=== PATIENT | female | born 1940 | race Caucasian/White ===

== ENCOUNTER 2020-05-28 14:38 | Outpatient (RCR) | payer MEDICARE, SELFPAY ==
[2016-03-08 20:47] VITALS: BMI 23.1
== END 2020-05-28 23:59 ==
LOC: IMMUN 14:38
PROVIDERS: Visit Provider Family Medicine
DX: Z23 Encounter for immunization (principal)
CPT/HCPCS: 0011A; 0012A; 91301

== ENCOUNTER 2024-07-19 16:03 | Emergency (ER) | payer MEDICARE, SELFPAY ==
[2024-07-19] VITALS (22 sets, daily range): BP systolic 129–187; BP diastolic 58–105; PULSE 55–92; RESP 13–26; TEMP 36.7–37.2; O2SAT 80–100; BMI 20.7
--- NOTE | 2024-07-19 16:15 | EKG12_ITS ---
Test Reason : CP Blood Pressure : */* mmHG Vent. Rate : 71 BPM Atrial Rate : 71 BPM P-R Int : 174 ms QRS Dur : 82 ms QT Int : 396 ms P-R-T Axes : 48 -17 23 degrees QTcB Int : 430 ms Normal sinus rhythm Normal ECG Confirmed by LUKASZ CARR, ADEN ([id number]), writer editor TRICE MATA ([id number]) on 07/22/2024 10:59:21 AM Referred By: NEGRO/JEANETH Confirmed By: ADEN LAL MD
--- NOTE | 2024-07-19 16:35 | RAD_ITS ---
PROCEDURE: CHEST 1 VIEW (PORTABLE) 07/19/2024 REASON FOR EXAM: CHEST PAIN TECHNIQUE: Frontal view of the chest. COMPARISON: None. FINDINGS: Sternotomy wires are present. The heart size is normal. Patchy opacities in the lung bases, compatible with atelectasis. No pneumothorax. No pleural effusion. Degenerative changes are identified within the thoracic spine. RAD/Chest 1 View (Portable) IMPRESSION: No Acute Findings. Reading Location: [facility]
[2024-07-19 16:42] LABS: Absolute Lymphocyte Count 1.52 X10^3/uL (0.83-4.51); Absolute Neutrophil Count 4.3 X10^3/uL (2.0-7.7); Basophil# 0.02 X10^3/uL; Basophil% 0.3 % (0-1); Eosinophil# 0.12 X10^3/uL; Eosinophils% 1.9 % (0-5); Hematocrit 33.8 % (37-47); Hemoglobin 11.6 g/dL (12.0-15.0); Lymphocyte # 1.52 X10^3/ul (0.83-4.51); Lymphocyte % 23.9 % (19-41); Mean Corp Hgb Conc 34.3 g/dL (32-36); Mean Corpuscular Hgb 29.7 pg (27.0-32.0); Mean Corpuscular Volume 86.4 fL (81-99); Mean Platelet Vol. 9.7 fl (6.2-12.0); Monocyte# 0.44 X10^3/uL; Monocyte% 6.9 % (0-10); NRBC Flagged by Analyzer 0 % (0-5); Neutrophil # 4.25 X10^3/uL (2.7-7.7); Neutrophil % 66.7 % (47-70); Platelet Count 231 K/mm3 (150-450); RBC Distribution Width CV 12.7 % (11.6-14.6); RBC Distribution Width SD 40.4 fl (35.1-43.9); Red Blood Count 3.91 M/mm3 (4.2-5.4); White Blood Count 6.4 K/mm3 (4.4-11.0)
--- NOTE | 2024-07-19 17:05 | EDS_ITS ---
HPI History of Present Illness Chief Complaint: Chest Pain Narrative Narrative: Patient is a 84-year-old female with past medical history of colon cancer with colostomy in place, hypertension, CAD status post CABG several years ago who presents to the emergency department chief complaint chest pain. Patient states that her chest pain started around 8 AM this morning. States that she was getting her breakfast when she noted she developed chest pain. Patient states that this was on and off throughout the day nothing really made this better or worse. Patient states that she has had some shortness of breath with exertion recently which is more than normal for her. Patient states that she does not follow with a stock sheets cleaner inspector on a regular basis. Patient denies recent travel history denies any history of blood clots. [facility] Medical History Colostomy in place Colon cancer Non-smoker Hypertension Home Medications ?Medication ?Instructions ?Recorded ?Last Taken ?Type atorvastatin 80 mg tablet 80 mg PO DAILY 03/08/16 Unkn own History magnesium hydroxide 400 mg/5 mL 30 ml PO PRN PRN Const ipation 03/08/16 Unknown History oral suspension (Milk of Magnesia) raloxifene 60 mg tablet 60 mg PO DAILY 03/08/16 Unkn own History Allergy/AdvReac Type Severity Reaction Status Date / Time Sulfa (Sulfonamide Allergy Anaphylaxis Verified 03/08/16 20:53 Antibiotics) Surgical History History of open heart surgery Social History Smoking Status: Never smoker ROS ROS ED ROS Narrative Constitutional: Denies fevers, chills, headaches, lightness, dizziness Eyes: Denies change in vision double vision blurry vision Cardiovascular: Complains of chest pain as noted above denies palpitations Respiratory: Complains of shortness of breath as noted above denies wheezing denies cough Abdomen: Denies abdominal pain nausea vomit diarrhea : Denies any urinary symptoms Neurological: Denies numbness, weakness, tingling Musculoskeletal: Denies back pain Skin: Denies rashes or lesions EXAM Physical Exam Narrative Exam Narrative: General: Patient is lying in bed rest comfortably did not appear to be in acute distress Head: Atraumatic, normocephalic Eyes: PERRL bilaterally, EOMI bilateral, no conjunctival injection noted Neck: Soft, supple, trachea midline Cardiovascular: Regular rate and rhythm no murmurs gallops rubs noted Respiratory: Clear to auscultation bilaterally no rales rhonchi or wheeze noted Abdomen: Soft, nondistended, colostomy pink, good output Extremities: +4/5 strength noted in the bilateral upper and lower extremities, radial pulses +2/4 in the bilateral extremities, no pedal edema no exam Neurological: Patient following commands knew that she was at [facility] year is 2024 Skin: Warm, dry, intact no rashes or lesions noted Const Vital Signs: 07/19/24 16:04 07/19/24 16:45 07/19/24 16:46 Temperature 98.9 F Temperature Source Oral Pulse Rate 78 Respiratory Rate 16 Respiratory Effort Normal Non-Labored Blood Pressure 182/101 H Blood Pressure Mean 128 Pulse Ox 98 Oxygen Delivery Method Room Air Room Air 07/19/24 17:33 07/19/24 17:46 07/19/24 17:47 Temperature Temperature Source Pulse Rate 60 70 Respiratory Rate 17 15 Respiratory Effort Blood Pressure Blood Pressure Mean Pulse Ox 100 96 99 Oxygen Delivery Method 07/19/24 18:00 07/19/24 18:15 07/19/24 18:30 Temperature Temperature Source Pulse Rate 61 62 62 Respiratory Rate 14 20 H 17 Respiratory Effort Blood Pressure 187/67 H 159/72 H 181/91 H Blood Pressure Mean 98 96 119 Pulse Ox 99 99 98 Oxygen Delivery Method 07/19/24 18:35 07/19/24 18:38 07/19/24 18:40 Temperature Temperature Source Pulse Rate 61 63 92 Respiratory Rate 17 26 H Respiratory Effort Blood Pressure 181/91 H 179/70 H 147/105 H Blood Pressure Mean 97 112 Pulse Ox 98 97 Oxygen Delivery Method 07/19/24 18:45 07/19/24 19:00 07/19/24 19:15 Temperature Temperature Source Pulse Rate 60 60 Respiratory Rate 15 19 H Respiratory Effort Blood Pressure 159/82 H 163/83 H 153/89 H Blood Pressure Mean 104 106 102 Pulse Ox 99 99 Oxygen Delivery Method 07/19/24 19:32 07/19/24 19:45 07/19/24 20:00 Temperature Temperature Source Pulse Rate 89 60 59 L Respiratory Rate 13 22 H Respiratory Effort Blood Pressure 150/68 H 138/77 H Blood Pressure Mean 92 95 Pulse Ox 80 97 98 Oxygen Delivery Method 07/19/24 20:15 07/19/24 20:30 07/19/24 20:45 Temperature Temperature Source Pulse Rate 56 L 57 L Respiratory Rate 16 20 H Respiratory Effort Blood Pressure 142/64 H 129/58 H 138/88 H Blood Pressure Mean 85 70 103 Pulse Ox 98 97 Oxygen Delivery Method 07/19/24 21:00 Temperature Temperature Source Pulse Rate 55 L Respiratory Rate 24 H Respiratory Effort Blood Pressure 161/58 H Blood Pressure Mean 88 Pulse Ox 98 Oxygen Delivery Method MDM MDM MDM Narrative Medical decision making narrative: Patient is a 84-year-old female who presented to the emergency department chief complaint chest pain since 8 AM this morning. On the differential diagnose includes but not limited to ACS, stable angina, pneumothorax, CHF. Once workup is obtained reviewed she will be reevaluated. Patient's CBC was reviewed and showed no evidence leukocytosis white blood count 6.4, hemoglobin 11.6, plate count to be normal at 231. Patient sodium normal 136, potassium normal 3.5, creatinine was noted to be 1.39. Patient's troponin was noted be 19 with a delta troponin noted be 19. Patient proBNP normal at 585. Patient's chest x-ray was reviewed by myself by radiology showed no acute cardiopulmonary processes. Patient's EKG reviewed showed sinus rhythm with a rate of 71 bpm this was compared to an EKG from March 08, 2016 and was largely unchanged. Patient ambulated well here in the emergency department no hypoxia no tachycardia. Patient ultimately did receive nitroglycerin as the family ember came out and notified us that she was having worsening chest pain. Patient n maria t that she still has been having intermittent chest pain off and on. Called and discussed case with on-call stock sheets cleaner inspector Dr. Avila who states that the patient can go home and follow-up with her primary care physician to have an outpatient stress test. At this point in time we have low suspicion that this is cardiac in nature as the pain has been off and on all day since 8 AM nothing makes this better or worse. I did discuss this plan with the patient's family numbers at bedside the patient herself. They did note that yesterday she did a lot of cleaning and stuff that she normally does not do. They are agreeable with this plan and they are advised to return for worsening symptoms and concerns. All question concerns answered she was discharged home in stable condition. Lab Data Labs: Laboratory Results - last 24 hr 07/19/24 07/19/24 07/19/24 16:23 18:29 18:29 WBC 6.4 RBC 3.91 L Hgb 11.6 L Hct 33.8 L MCV 86.4 MCH 29.7 MCHC 34.3 RDW Std Deviation 40.4 RDW Coeff of Gilberto 12.7 Plt Count 231 MPV 9.7 Immature Gran % (Auto) 0.300 Neut % (Auto) 66.7 Lymph % (Auto) 23.9 [place] % (Auto) 6.9 Eos % (Auto) 1.9 Baso % (Auto) 0.3 Absolute Neuts (auto) 4.3 Absolute Lymphs (auto) 1.52 Nucleated RBC % 0 Sodium 136 Potassium 3.5 Chloride 98 Carbon Dioxide 21.8 Anion Gap 16 H BUN 24 H Creatinine 1.39 H Estim Creat Clear Calc 26.49 L Est GFR (MDRD) Non-Af 37 L BUN/Creatinine Ratio 17.1 Glucose 170 H Calcium 9.8 Total Bilirubin 0.41 Direct Bilirubin 0.16 AST 22 ALT 13 Alkaline Phosphatase 80 Troponin T High Sens 19 H Troponin T Hi Sens 2 Hr Cancelled 19 H NT pro BNP II 585 Total Protein 6.5 Albumin 4.1 Globulin 2.4 Radiography Diagnostic Testing: Clinical Impression(s) from Imaging Studies Chest X-Ray 07/19/24 16:35 IMPRESSION: No Acute Findings. Reading Location: [facility] Discharge Plan Triage Chief Complaint: Chest Pain ED Provider: Ulysses Rubalcava Dx/Rx/DC Orders Clinical Impression: Chest pain Prescriptions: No Action atorvastatin 80 MG tablet 80 mg PO DAILY magnesium hydroxide [Milk of Magnesia] 400 MG/5 ML suspension 30 ml PO PRN PRN (Reason: Constipation) raloxifene 60 MG tablet 60 mg PO DAILY Primary Care Provider: Alexis West Referrals: Alexis West MD [Primary Care Provider] - Activity Restrictions/Additional Instructions: Follow-up with your primary care physician have a stress test obtained in the outpatient setting. Return with worsening symptoms or other concerns. Rotate Tylenol and ibuprofen [id number] for pain control when you do this you can take something every 3 hours. Max dose of Tylenol is 4000 mg max dose of ibuprofen is 3200 mg. Print Language: Polish Disposition Disposition: Home, Self Care
[2024-07-19 18:12] LABS: AST(SGOT) 22 U/L (<=31); Alanine Aminotransfer ALT/SGPT 13 U/L (<=34); Albumin, Serum 4.1 g/dL (3.4-4.8); Alkaline Phosphatase 80 U/L (35-104); Anion Gap 16 (5-15); BUN 24 mg/dL (4-19); BUN/Creat Ratio 17.1 RATIO (10-20); Bilirubin, Direct 0.16 mg/dL (0.00-0.30); Calcium,Total 9.8 mg/dL (7.6-11.0); Carbon Dioxide 21.8 mmol/L (21.0-32.0); Chloride 98 mmol/L (98-108); Creatinine, Serum 1.39 mg/dL (0.70-1.20); EST Glomerular Filtration Rate 37 (>60); Estimated Creatinine Clearance 26.49 ml/min (50-250); Globulin 2.4 g/dL (2.2-4.2); Glucose 170 mg/dL (70-99); Potassium 3.5 mmol/L (3.3-5.1); Protein, Total 6.5 g/dL (5.9-8.4); Sodium Level 136 mmol/L (133-145); Total Bilirubin 0.41 mg/dL (0.00-1.30); Troponin T High Sensitivity 19 ng/L (<=14)
[2024-07-19] MEDS: Nitroglycerin SL (ED/IMG/CATH) 0.4 MG TABLET SL (18:35)
[2024-07-19] MEDS: Aspirin 325 MG Tablet PO (18:35)
[2024-07-19 18:53] LABS: Pro- Brain NATRIURETIC PEPTIDE 585 pg/mL (<=1800)
[2024-07-19 19:55] LABS: Troponin T High Sens 2 HR 19 ng/L (<=14)
--- NOTE | 2024-07-19 21:50 | ED.RN ---
did not want 4 hour troponin at this time
== END 2024-07-19 22:01 | disposition home or self-care (01) ==
PROVIDERS: Emergency Provider Emergency Medicine; PCP Family Medicine; Visit Provider Emergency Medicine
DX: R07.9 Chest pain, unspecified (principal); Z93.3 Colostomy status; I10 Essential (primary) hypertension; Z85.038 Personal history of other malignant neoplasm of large intestine; I25.10 Atherosclerotic heart disease of native coronary artery without angina pectoris; Z95.1 Presence of aortocoronary bypass graft; R06.02 Shortness of breath
CPT/HCPCS: 71045; 80048; 80076; 83880; 84484; 85025; 93005; 99285; A4216

== ENCOUNTER 2024-07-24 18:17 | Observation (INO) | payer MEDICARE, SELFPAY ==
[2024-07-24] VITALS (12 sets, daily range): BP systolic 107–197; BP diastolic 49–110; PULSE 64–81; RESP 15–24; TEMP 36.6–36.8; O2SAT 96–99; BMI 22.0; BMI 21.7
--- NOTE | 2024-07-24 18:31 | EKG12_ITS ---
Test Reason : CP Blood Pressure : */* mmHG Vent. Rate : 74 BPM Atrial Rate : 74 BPM P-R Int : 182 ms QRS Dur : 90 ms QT Int : 382 ms P-R-T Axes : 52 -29 14 degrees QTcB Int : 424 ms Sinus rhythm with sinus arrhythmia with Premature ventricular complexes or Fusion complexes Nonspecific ST abnormality Abnormal ECG When compared with ECG of 19-Jul-2024 16:11, Fusion complexes are now Present Premature ventricular complexes are now Present Confirmed by ASAEL CARR, FREDERCIK ([id number]), book or script editor CECELIA YUN ([id number]) on 07/29/2024 7:34:14 AM Referred By: Alexander Gould Confirmed By: FREDERICK VYAS MD
--- NOTE | 2024-07-24 18:32 | EDS_ITS ---
HPI History of Present Illness Chief Complaint: Chest Pain Informant: patient and family Narrative Narrative: Patient presents here with her son for recurrent chest pain 5 PM will get ready for supper with midsternal soreness burning with short of breath. No nausea no radicular symptoms no diaphoresis. She was seen here 4 days ago similar symptoms however this is more intense. History of four-vessel CABG over 30 years ago. She currently does not follow cardiology. She is not on aspirin. Hypertension hyperlipidemia history. Borderline diabetes. She states no recent stress test. She did follow-up with her PCP yesterday, states pharmacological stress test scheduled for September 16. She has a chronic dry cough. Denies vomiting or diarrhea. No recent travel or surgeries. No history of PE or DVT. Colostomy 2 years ago for history of colon cancer. No chemo or radiation therapy recently. Prior Similar Symptoms: Yes CVD Risk Factors: Positive for Hypertension, Diabetes and Hypercholesterolemia PE Risk Factors: Negative for Recent Travel/Surgery, Recent Immobilization or [facility] or [facility] (Updated 07/24/24 @ 20:[address] Jessica Sidhu MD) Psoriasis Prediabetes CKD (chronic kidney disease), stage III Chronic anemia CAD (coronary artery disease) HLD (hyperlipidemia) Colostomy in place Colon cancer Hypertension Home Medications ?Medication ?Instructions ?Recorded ?Last Taken ?Type atorvastatin 80 mg tablet 80 mg PO DAILY 03/08/16 Unkn own History raloxifene 60 mg tablet 60 mg PO DAILY 03/08/16 Unkn own History chlorthalidone 25 mg tablet 25 mg PO DAILY 07/24/24 Un known History cholecalciferol (vitamin D3) 1 tab PO DAILY 07/24/24 0 07/24/24 History clobetasol 0.05 % scalp solution 1 applic topical EVAN Y 07/24/24 Unknown History Allergy/AdvReac Type Severity Reaction Status Date / Time Sulfa (Sulfonamide Allergy Anaphylaxis Verified 07/24/24 18:17 Antibiotics) Family History (Updated 07/24/24 @ 20:[address] Jessica Sidhu MD) Mother M?ni?re's disease Father No problems noted. Surgical History (Updated 07/24/24 @ 19:[address] Jessica Sidhu MD) S/P CABG x 4 S/P partial colectomy S/P colostomy History of open heart surgery Social History (Updated 07/24/24 @ 20:[address] Jessica Sidhu MD) household members: none Smoking Status: Never smoker alcohol intake: never substance use type: does not use ROS ROS ED Constitutional Constitutional ED: Denies chills, fever(s) or sweats ENT ENT ED: Denies sore throat Cardiovascular Cardiovascular: Reports chest pain; Denies leg edema, palpitations or racing heartbeat Respiratory/Chest Respiratory/Chest: Reports dyspnea; Denies cough or dyspnea on exertion Gastrointestinal Gastrointestinal: Denies abdominal pain, diarrhea, nausea or vomiting Genitourinary Genitourinary ED: Denies dysuria, hematuria or urinary frequency Musculoskeletal Musculoskeletal: Denies back pain, extremity pain or neck pain Integumentary Denies rash or wounds Neurologic Neurologic: Denies headache(s), paresthesias or weakness EXAM Physical Exam Const Vital Signs: 07/24/24 18:18 07/24/24 18:28 07/24/24 18:31 Temperature 97.8 F Temperature Source Temporal Pulse Rate 79 69 Respiratory Rate 24 H 16 Respiratory Effort Normal Blood Pressure 177/110 H 107/81 H Blood Pressure Mean 132 89 Pulse Ox 96 98 Oxygen Delivery Method Room Air Room Air 07/24/24 18:49 07/24/24 18:51 07/24/24 19:00 Temperature Temperature Source Pulse Rate 67 65 Respiratory Rate 15 17 Respiratory Effort Blood Pressure Blood Pressure Mean Pulse Ox 99 98 Oxygen Delivery Method Room Air 07/24/24 19:01 Temperature Temperature Source Pulse Rate 80 Respiratory Rate 17 Respiratory Effort Blood Pressure 155/63 H Blood Pressure Mean 90 Pulse Ox 98 Oxygen Delivery Method Positive well nourished and well developed General Appearance ED: well developed and NAD HEENT Reports moist mucous membranes normocephalic and atraumatic Eyes General Eye ED: Yes normal appearance of both eyes Neck full ROM Chest Wall Chest: Negative for tenderness Resp normal respiratory effort and normal air movement Effort and Inspection: symmetric chest movement; Negative for respiratory distre ss Cardio regular rate, regular rhythm and no murmurs Peripheral Pulses: pulses 2+ throughout GI normal to inspection, nondistended, normoactive bowel sounds and non-tender GI Narrative: Left lower abdomen colostomy Palpation: Negative for guarding or rebound tenderness present Extremity normal to inspection General Extremety ED: Negative for edema or tenderness General Extremity: Negative for edema Neuro oriented x3 and no sensory deficits noted Sensorium / Orientation: awake and alert Skin no rashes or lesions noted and no wounds Heart Score History: Slightly/Non-Suspicious ECG: Normal Age: >/= 65 years Risk Factors: >/= 3 Risk Factors or History of CAD Troponin: >1 - <3 Normal Limit Score: 5 MDM MDM MDM Narrative Medical decision making narrative: Interventions / MDM: Differential diagnosis: Chest pain, history of coronary disease Diagnosis considered but do not suspect: Pulmonary embolism however D-dimer negative My EKG interpretation: Sinus rate of 74, no ST changes, isolated T wave inversion in 3 flattening in aVF. Similar to 4 days ago. Imaging independently reviewed and interpreted by myself: 1 view chest x-ray: Linear retrocardiac opacity atelectasis versus scarring. External documents reviewed: ED visit from 4 days ago troponin 19 and 19. Discussed with cardiology for outpatient testing. Test considered but not ordered:N/A ED course: Patient recurrent chest pain history of coronary disease cardiac risk factors. EKG unchanged. Aspirin therapy given. Cardiac workup. History of colon cancer recurrent symptoms, will add D-dimer for further evaluation. 1933: Initial troponin 15, symptoms minimal at this time on reevaluation. D- dimer was negative. Chest x-ray linear atelectasis versus scarring with opacity. Dry cough. No clinical concern for pneumonia. Creatinine 1.53 up from 1.39. I will give her a 500 cc bolus of normal saline. Sodium 131. History of coronary disease recurrent chest pains, delayed stress test outpatient at this time. I will discuss with hospitalist service for admission. I discussed with Dr. Sidhu for admission. Re-evaluation: stable Disposition discussed with patient/family/significant other: Patient and family Case discussed with consulting clinician: Hospitalist This note was generated with Milo dictation software. It may contain incorrect words, spelling, and punctuation that were not noted in checking the note before signing. Lab Data Attestation: I reviewed the patient's lab results. Labs: Laboratory Results - last 24 hr 07/24/24 18:33 WBC 6.5 RBC 3.93 L Hgb 11.7 L Hct 34.0 L MCV 86.5 MCH 29.8 MCHC 34.4 RDW Std Deviation 40.4 RDW Coeff of Gilberto 12.7 Plt Count 244 MPV 9.6 Immature Gran % (Auto) 0.300 Neut % (Auto) 62.1 Lymph % (Auto) 28.3 [place] % (Auto) 6.7 Eos % (Auto) 2.3 Baso % (Auto) 0.3 Absolute Neuts (auto) 4.1 Absolute Lymphs (auto) 1.85 Nucleated RBC % 0 D-Dimer Quant (PE/DVT) 0.39 Sodium 131 L Potassium 3.7 Chloride 95 L Carbon Dioxide 22.8 Anion Gap 14 BUN 23 H Creatinine 1.53 H Estim Creat Clear Calc 24.19 L Est GFR (MDRD) Non-Af 33 L BUN/Creatinine Ratio 14.8 Glucose 271 H Calcium 9.4 Magnesium 1.5 Troponin T High Sens 15 H D Radiography Diagnostic Testing: Clinical Impression(s) from Imaging Studies Chest X-Ray 07/24/24 18:36 IMPRESSION: Stable linear retrocardiac opacities which may relate to atelectasis/scarring. Please correlate. [facility] Dx/Rx/DC Orders Clinical Impression: Chest pain, Hx of CABG, Renal insufficiency, Hyponatremia Disposition Disposition: Acute Care Hospital [facility] Discharge Date/Time: 07/24/24 20:30
--- NOTE | 2024-07-24 18:36 | RAD_ITS ---
PROCEDURE: Chest radiograph REASON FOR EXAM: Chest pain TECHNIQUE: Frontal view of the chest. COMPARISON: 07/19/2024 FINDINGS: Cardiomediastinal silhouette is within normal limits. Unchanged linear retrocardiac opacities favoring scarring/atelectasis. Lungs are otherwise clear. No sizable pneumothorax. RAD/Chest 1 View (Portable) IMPRESSION: Stable linear retrocardiac opacities which may relate to atelectasis/scarring. Please correlate. Reading Location: [facility]
[2024-07-24] MEDS: Aspirin 81 MG TAB.CHEW 324 MG PO (18:43)
[2024-07-24 18:57] LABS: Absolute Lymphocyte Count 1.85 X10^3/uL (0.83-4.51); Absolute Neutrophil Count 4.1 X10^3/uL (2.0-7.7); Basophil# 0.02 X10^3/uL; Basophil% 0.3 % (0-1); D-Dimer Quantitative (DVT/PE) 0.39 FEU/ug/m (0.27-0.49); Eosinophil# 0.15 X10^3/uL; Eosinophils% 2.3 % (0-5); Hemoglobin 11.7 g/dL (12.0-15.0); Lymphocyte # 1.85 X10^3/ul (0.83-4.51); Lymphocyte % 28.3 % (19-41); Mean Corp Hgb Conc 34.4 g/dL (32-36); Mean Corpuscular Hgb 29.8 pg (27.0-32.0); Mean Corpuscular Volume 86.5 fL (81-99); Mean Platelet Vol. 9.6 fl (6.2-12.0); Monocyte# 0.44 X10^3/uL; Monocyte% 6.7 % (0-10); NRBC Flagged by Analyzer 0 % (0-5); Neutrophil # 4.06 X10^3/uL (2.7-7.7); Neutrophil % 62.1 % (47-70); Platelet Count 244 K/mm3 (150-450); RBC Distribution Width CV 12.7 % (11.6-14.6); RBC Distribution Width SD 40.4 fl (35.1-43.9); Red Blood Count 3.93 M/mm3 (4.2-5.4); White Blood Count 6.5 K/mm3 (4.4-11.0)
[2024-07-24 19:26] LABS: Anion Gap 14 (5-15); BUN 23 mg/dL (4-19); BUN/Creat Ratio 14.8 RATIO (10-20); Calcium,Total 9.4 mg/dL (7.6-11.0); Carbon Dioxide 22.8 mmol/L (21.0-32.0); Chloride 95 mmol/L (98-108); Creatinine, Serum 1.53 mg/dL (0.70-1.20); EST Glomerular Filtration Rate 33 (>60); Estimated Creatinine Clearance 24.19 ml/min (50-250); Glucose 271 mg/dL (70-99); Potassium 3.7 mmol/L (3.3-5.1); Sodium Level 131 mmol/L (133-145); Troponin T High Sensitivity 15 ng/L (<=14)
[2024-07-24] MEDS: 0.9% Normal Saline (500mL Bag) 500 ML 999 ML IV (19:48)
--- NOTE | 2024-07-24 19:49 | PCM.HP.STD ---
HPI - General General Date of Admission: 07/24/24 Date of Service: 07/24/24 Chief Complaint: Chest pain, dyspnea. HPI Narrative The patient is an 84 y/o F w/ PMHx: Prediabetes, HTN, HLD, Hx Colon CA s/p resection with colostomy in place, CAD s/p CABG, CKD stage III unclear subtype per GFR trending, Chronic normocytic anemia who presents to the [facility] ED on 07/24/2024 with history of episodes of recurrent chest discomfort noted to be specifically today at 5 PM while getting ready for supper noted to be midsternal described as an aching/soreness/burning with associated dyspnea with no nausea, emesis or diaphoresis seen approximately 4 days prior in the ED for similar symptoms but she notes this is more intense than prior prompting family to bring her in for evaluation. Patient states that she has not been taking the aspirin therapy. She notes following with her PCP the day prior and did have a pharmacological stress test ordered for 09/16/2024. She does report having a chronic dry cough that is unchanged. Patient describes chest discomfort as 5 out of 10 in severity. In the ED upon evaluation she notes has been chest pain-free. She does think that potentially the chest pain is primarily when she is active. Workup in the ED included T97.8, heart rate 79, BP 177/110, respiratory rate 24, 96% on room air with most recent repeat vitals heart rate 80, BP 150/63, respiratory rate 17, 98% room air, CBC with WBC 6.5, 11.7, MCV 86.5 without marked shift, D-dimer 0.39, BMP with sodium 131, chloride 95, BUN/Kingsley 23/1.53, GFR 33, glucose 271, troponin initial 15, chest x-ray with stable linear retrocardiac opacities likely atelectasis/scarring noted on prior imaging studies, EKG in ED sinus rhythm with isolated T wave inversion in 3, flattening in AVF similar to previous. [facility] Medical History (Updated 07/24/24 @ 20:[address] Jessica Sidhu MD) Psoriasis Prediabetes CKD (chronic kidney disease), stage III Chronic anemia CAD (coronary artery disease) HLD (hyperlipidemia) Colostomy in place Colon cancer Hypertension Home Medications ?Medication ?Instructions ?Recorded ?Last Taken ?Type atorvastatin 80 mg tablet 80 mg PO DAILY 03/08/16 Unknown History raloxifene 60 mg tablet 60 mg PO DAILY 03/08/16 Unknown History chlorthalidone 25 mg tablet 25 mg PO DAILY 07/24/24 Unknown History cholecalciferol (vitamin D3) 1 tab PO DAILY 07/24/24 07/24/24 History clobetasol 0.05 % scalp solution 1 applic topical DAILY 07/24/24 Unknown History Allergy/AdvReac Type Severity Reaction Status Date / Time Sulfa (Sulfonamide Allergy Anaphylaxis Verified 07/24/24 18:17 Antibiotics) Family History (Updated 07/24/24 @ 20:[address] Jessica Sidhu MD) Mother M?ni?re's disease Father No problems noted. Surgical History (Updated 07/24/24 @ 19:[address] Jessica Sidhu MD) S/P CABG x 4 S/P partial colectomy S/P colostomy History of open heart surgery Social History (Updated 07/24/24 @ 20:[address] Jessica Sidhu MD) household members: none Smoking Status: Never smoker alcohol intake: never substance use type: does not use ROS ROS Narrative Admission Review of Systems: CONSTITUTIONAL: No weight loss, fever, chills, + weakness or fatigue. HEENT: Eyes: No visual loss, blurred vision, double vision or yellow sclerae. Ears, Nose, Throat: No hearing loss, sneezing, congestion, runny nose or sore throat. SKIN: No rash or itching, lesions, wounds, + psoriatic lesions. CARDIOVASCULAR: + Chest pain/tightness/burning sensation. No palpitations, edema, orthopnea, syncopal events. RESPIRATORY: + Dyspnea, chronic dry cough. No wheezing, hemoptysis. GASTROINTESTINAL: + Colostomy in place. No anorexia, nausea, vomiting or diarrhea, abdominal pain, melena, BRBPR. GENITOURINARY: No dysuria, frequency, urgency or retention. NEUROLOGICAL: No headache, dizziness, syncope, paralysis, ataxia, numbness or tingling in the extremities, focal weakness, change in bowel or bladder control, seizure. MUSCULOSKELETAL: + muscle, back pain, joint pain or stiffness. HEMATOLOGIC: + Anemia, easy bleeding/bruising LYMPHATICS: No enlarged nodes. No history of splenectomy. PSYCHIATRIC: No history of anxiety and/or depression. ENDOCRINOLOGIC: No reports of sweating, cold or heat intolerance. No polyuria or polydipsia. ALLERGIES: No history of asthma, hives, eczema or rhinitis. Vital Signs Vital Signs Vital Signs: 07/24/24 18:18 07/24/24 18:28 07/24/24 18:31 Temperature 97.8 F Temperature Source Temporal Pulse Rate 79 69 Respiratory Rate 24 H 16 Respiratory Effort Normal Blood Pressure 177/110 H 107/81 H Blood Pressure Mean 132 89 Pulse Ox 96 98 Oxygen Delivery Method Room Air Room Air 07/24/24 18:49 07/24/24 18:51 07/24/24 19:00 Temperature Temperature Source Pulse Rate 67 65 Respiratory Rate 15 17 Respiratory Effort Blood Pressure Blood Pressure Mean Pulse Ox 99 98 Oxygen Delivery Method Room Air 07/24/24 19:01 Temperature Temperature Source Pulse Rate 80 Respiratory Rate 17 Respiratory Effort Blood Pressure 155/63 H Blood Pressure Mean 90 Pulse Ox 98 Oxygen Delivery Method Weight Weight: 132 lb 7.965 oz Body Mass Index (BMI) 22.0 Physical Exam Narrative Physical Examination: General: Awake, alert, oriented x 3 and cooperative, seated upright in the ED bed, denies any current chest discomfort. Skin: Normal color, normal turgor, no icterus, no cyanosis except for occasional stage ecchymoses, abrasions, psoriatic lesions. HEENT: AT/NC, EOMI, PERRLA, mildly dry MM, no carotid bruits or JVD noted. Lungs: Mildly diminished, greater bases, poor effort, no rales, ronchi or wheezing. Heart: Regular rate and rhythm; no gallop, rub audible, + SM. Abdomen: Soft, left lower quadrant colostomy with appropriate output, NTTP, ND, hyperactive BS, no appreciated HSM. Extremities: No cyanosis, clubbing, or edema. Neurological: Patient awake, alert, oriented as noted, cognitive function intact; pupils equally reactive to light and accommodation, cranial nerves gross normal, moving all 4 extremities, no focal deficits, strength mildly to moderately global decreased, extremely active performing her all her own ADLs per discussion. Psychiatric: Affect appears normal, no acute evidence of depressive or anxiety feelings. Results Lab / Micro Data 07/24/24 18:33 07/24/24 18:33 Labs: Laboratory Results - last 24 hr 07/24/24 18:33: WBC 6.5, RBC 3.93 L, Hgb 11.7 L, Hct 34.0 L, MCV 86.5, MCH 29.8, MCHC 34.4, RDW Std Deviation 40.4, RDW Coeff of Gilberto 12.7, Plt Count 244, MPV 9.6, Immature Gran % (Auto) 0.300, Neut % (Auto) 62.1, Lymph % (Auto) 28.3, Fannin % (Auto) 6.7, Eos % (Auto) 2.3, Baso % (Auto) 0.3, Absolute Neuts (auto) 4.1, Absolute Lymphs (auto) 1.85, Nucleated RBC % 0, D-Dimer Quant (PE/DVT) 0.39, Sodium 131 L, Potassium 3.7, Chloride 95 L, Carbon Dioxide 22.8, Anion Gap 14, BUN 23 H, Creatinine 1.53 H, Estim Creat Clear Calc 24.19 L, Est GFR (MDRD) Non-Af 33 L, BUN/Creatinine Ratio 14.8, Glucose 271 H, Calcium 9.4, Troponin T High Sens 15 H D Imaging Radiology Impression Chest X-Ray 07/24/24 18:36 IMPRESSION: Stable linear retrocardiac opacities which may relate to atelectasis/scarring. Please correlate. Reading Location: [facility] Assessment & Plan Assessment/Plan (1) Chest pain: PLAN: Plan The patient is an 84 y/o F w/ PMHx: Prediabetes, HTN, HLD, Hx Colon CA s/p resection with colostomy in place, CAD s/p CABG, CKD stage III unclear subtype per GFR trending, Chronic normocytic anemia who presents to the [facility] ED on 07/24/2024 with history of episodes of recurrent chest discomfort noted to be specifically today at 5 PM while getting ready for supper noted to be midsternal described as an aching/soreness/burning with associated dyspnea with no nausea, emesis or diaphoresis seen approximately 4 days prior in the ED for similar symptoms but she notes this is more intense than prior prompting family to bring her in for evaluation. #1. Chest Pain: EKG in ED sinus rhythm with isolated T wave inversion in 3, flattening in AVF similar to previous, CXR w/ no acute cardiopulmonary findings, initial trop 15. Will admit to PCU, place on a monitored bed to assure no acute myocardial infarction with serial cardiac enzymes and EKGs. If repeat serial cardiac enzymes and EKGs remain unremarkable will pursue a.m. cardiac stress testing. Magnesium level requested. FLP in AM. Aspirin therapy. #2. Hyperglycemia with reported prediabetic history: Not on regimen, admission glucose 271, will obtain he will A1c, maintain on ADA diet with Accu-Cheks with insulin sliding scale to be cautious. #3. Acute mild hyponatremia, hypochloremia: Admission sodium 131, chloride 95, mildly decreased, will temporally hold chlorthalidone and judiciously hydrate, repeat CMP in AM. #4. Chronic normocytic anemia: Admission hemoglobin 1.7, MCV 86.5, baseline hemoglobin 11, stable, continue to trend. #5. CAD: Status post CABG x 4 remotely reported, will maintain on aspirin, statin, not on beta-samanta or ISAIAS inhibitor/ARB, attempting to clarify #6. Chronic Kidney Disease Stage III, unclear subtype per GFR trend: Admission BUN/Cr 23/1.53, GFR 33, baseline renal function 1.3 but not a significant amount of data points thus unclear exact level baseline, repeat BMP in AM. #7. History of colon cancer: s/p partial colectomy/resection approximately 2 years prior to current presentation, colostomy in place, consider admission, encourage continue follow-up outpatient as previously arranged #8. Hypertension: Temporally holding chlorthalidone, not on beta-samanta or ISAIAS inhibitor/ARB of note, PRN hydralazine. #9. Hyperlipidemia: Continue home statin regimen. AM FLP. #10. DVT prophylaxis: Lovenox. #11. CODE status: Patient healthcare power of patent prosecution attorney and living will are not in place but she notes that her daughter Jazmyn would be her medical decision-maker if necessary. Discussed CODE status at length including difference between FULL code, DNR-CCA and DNR-CC status. Following discussions about the differences in these status, requested Full Code status. Advanced Care Planning Face to Face Time: 16 minutes. Charges/Coding Visit Charges Inpatient E&M: 94627 Init Hosp L2 Procedures Hospitalists Procedures: 30475 Advncd Care Plan 30 Min
--- NOTE | 2024-07-24 19:53 | CASEMGMT ---
Care Management Face to Face with patient for initial transition planning/care coordination assessment in the ED.? This creative services writer introduced self and role at [facility]. Patient alert and oriented. Patient willing to participate in assessment and is able to answer all questions appropriately.? Care providers, pharmacy, and demographics verified. Admitting Diagnosis: Chest pain Other diagnosis history: colostomy, colon cancer, hypertension PCP: Brett Specialists: dermatology Preferred Pharmacy: [facility] Insurance: [employer] Prescription Benefit: yes Living Will/HPOA: ?no LNOK: son, daughter Living Arrangements: lives alone in a one story home. Patient independent with ADLs and IADLs Transportation: son and daughter drive DME: wheelchair, cane, grab bars in bathroom, shower chair HHC: none SNF/Rehab: none Community Resources: none Behavioral Health History: none Patient goals: Patient wishes to discharge home. Disposition Plan: admission to acute; RN CM/SW to follow for discharge planning needs that may arise. Margarita Diop, [employer]ER, [employer] GROWER
--- NOTE | 2024-07-24 19:55 | EKG12_ITS ---
Test Reason : AM EKG Blood Pressure : */* mmHG Vent. Rate : 70 BPM Atrial Rate : 70 BPM P-R Int : 180 ms QRS Dur : 86 ms QT Int : 408 ms P-R-T Axes : -16 -20 -1 degrees QTcB Int : 440 ms Normal sinus rhythm Cannot rule out Anterior infarct , age undetermined Abnormal ECG When compared with ECG of 24-Jul-2024 21:36, MANUAL COMPARISON REQUIRED DATA IS UNCONFIRMED Confirmed by ASAEL CARR, FREDERICK ([id number]), editor map CECELIA YUN ([id number]) on 07/25/2024 1:01:26 PM Referred By: Alexander Gould Confirmed By: FREDERICK VYAS MD
[2024-07-24 20:43] LABS: Magnesium 1.5 mg/dL (1.5-2.2)
[2024-07-24 21:36] LABS: Troponin T High Sens 2 HR 17 ng/L (<=14)
[2024-07-24] MEDS: Insulin Lispro 100 UNIT/ML INSULN.PEN SC (21:48)
[2024-07-24] MEDS: Atorvastatin Calcium 80 MG Tablet PO (21:50)
[2024-07-24] MEDS: 0.9% Saline Lock 10 ML Syringe IV (21:53)
[2024-07-24] MEDS: 0.9% Normal Saline (1000mL) 1,000 ML 100 ML IV (21:53)
[2024-07-24 22:03] LABS: Bedside Glucose 192 mg/dL (74-106)
[2024-07-24] MEDS: hydrALAZINE 20 MG/ML Vial 10 MG IV (22:07)
[2024-07-24 23:06] LABS: Troponin T High Sens 4 HR 19 ng/L (<=14)
[2024-07-25] VITALS (7 sets, daily range): BP systolic 143–177; BP diastolic 64–88; PULSE 68–92; RESP 16–17; TEMP 36.4–36.9; O2SAT 95–98; BMI 22.0
[2024-07-25 05:38] LABS: Absolute Lymphocyte Count 1.05 X10^3/uL (0.83-4.51); Absolute Neutrophil Count 5.7 X10^3/uL (2.0-7.7); Basophil# 0.03 X10^3/uL; Basophil% 0.4 % (0-1); Eosinophil# 0.12 X10^3/uL; Eosinophils% 1.6 % (0-5); Hematocrit 33.2 % (37-47); Hemoglobin 11.5 g/dL (12.0-15.0); Lymphocyte # 1.05 X10^3/ul (0.83-4.51); Lymphocyte % 14.4 % (19-41); Mean Corp Hgb Conc 34.6 g/dL (32-36); Mean Corpuscular Hgb 29.9 pg (27.0-32.0); Mean Corpuscular Volume 86.2 fL (81-99); Mean Platelet Vol. 9.9 fl (6.2-12.0); Monocyte# 0.39 X10^3/uL; Monocyte% 5.3 % (0-10); NRBC Flagged by Analyzer 0 % (0-5); Platelet Count 219 K/mm3 (150-450); RBC Distribution Width CV 12.8 % (11.6-14.6); RBC Distribution Width SD 40.4 fl (35.1-43.9); Red Blood Count 3.85 M/mm3 (4.2-5.4); White Blood Count 7.3 K/mm3 (4.4-11.0)
--- NOTE | 2024-07-25 05:55 | EKG12_ITS ---
Test Reason : FLOOR ADMIT CP Blood Pressure : */* mmHG Vent. Rate : 61 BPM Atrial Rate : 61 BPM P-R Int : 160 ms QRS Dur : 88 ms QT Int : 428 ms P-R-T Axes : 16 -20 3 degrees QTcB Int : 430 ms Normal sinus rhythm Normal ECG When compared with ECG of 24-Jul-2024 18:22, MANUAL COMPARISON REQUIRED DATA IS UNCONFIRMED Confirmed by ASAEL CARR, FREDERICK ([id number]), advertising editor CECELIA YUN ([id number]) on 07/25/2024 1:01:45 PM Referred By: Alexander Gould Confirmed By: FREDERICK VYAS MD
[2024-07-25] MEDS: Aspirin E.C. 81 MG Tablet PO (06:22)
[2024-07-25] MEDS: hydrALAZINE 20 MG/ML Vial 10 MG IV (06:31)
[2024-07-25 06:36] LABS: ALB/GLOB Ratio 1.8 RATIO (0.9-2.4); AST(SGOT) 19 U/L (<=31); Alanine Aminotransfer ALT/SGPT 13 U/L (<=34); Albumin, Serum 3.8 g/dL (3.4-4.8); Alkaline Phosphatase 69 U/L (35-104); Anion Gap 14 (5-15); BUN 21 mg/dL (4-19); BUN/Creat Ratio 16.9 RATIO (10-20); Calcium,Total 9.3 mg/dL (7.6-11.0); Chloride 99 mmol/L (98-108); Creatinine, Serum 1.25 mg/dL (0.70-1.20); EST Glomerular Filtration Rate 42 (>60); Estimated Creatinine Clearance 29.61 ml/min (50-250); Globulin 2.1 g/dL (2.2-4.2); Glucose 214 mg/dL (70-99); Potassium 3.4 mmol/L (3.3-5.1); Protein, Total 5.9 g/dL (5.9-8.4); Sodium Level 133 mmol/L (133-145); Total Bilirubin 0.43 mg/dL (0.00-1.30)
[2024-07-25 07:10] LABS: Cholesterol 179 mg/dL (<=200); High Density Lipoprotein 49 mg/dL; Low Density Lipoprotein Calc. 97 mg/dL; Triglycerides 167 mg/dL; Very Low Density Lipoprotein 33 mg/dL (5-40); cholesterol:hdl ratio screen 3.65
--- NOTE | 2024-07-25 07:49 | PN.HOSP_ITS ---
Reason for Visit Reason for Visit: Diagnoses Chest pain, unspecified (07/24/24) Objective Data Objective Data Vital Signs: Vital Signs Temp Pulse Resp BP Pulse Ox O2 Del Method 98.4 F 74 16 177/79 H 96 Room Air 07/25/24 06:19 07/25/24 06:31 07/25/24 06:19 07/25/24 06:31 07/25/24 06:19 07/25/24 06:19 Oxygen Delivery Method Room Air Weight: 132 lb 4.438 oz Body Mass Index (BMI) 22.0 Intake & Output: Intake and Output for Last 24 Hours 07/23/24 07/24/24 07/25/24 23:59 23:59 23:59 Intake Total 500 / 500 Balance 500 / 500 Lab / Micro Data 07/25/24 04:21 07/25/24 04:21 Labs: Laboratory Results - last 24 hr 07/24/24 18:33: WBC 6.5, RBC 3.93 L, Hgb 11.7 L, Hct 34.0 L, MCV 86.5, MCH 29.8, MCHC 34.4, RDW Std Deviation 40.4, RDW Coeff of Gilberto 12.7, Plt Count 244, MPV 9.6, Immature Gran % (Auto) 0.300, Neut % (Auto) 62.1, Lymph % (Auto) 28.3, Kershaw % (Auto) 6.7, Eos % (Auto) 2.3, Baso % (Auto) 0.3, Absolute Neuts (auto) 4.1, Absolute Lymphs (auto) 1.85, Nucleated RBC % 0, D-Dimer Quant (PE/DVT) 0.39, S odium 131 L, Potassium 3.7, Chloride 95 L, Carbon Dioxide 22.8, Anion Gap 14, B UN 23 H, Creatinine 1.53 H, Estim Creat Clear Calc 24.19 L, Est GFR (MDRD) Non- Af 33 L, BUN/Creatinine Ratio 14.8, Glucose 271 H, Calcium 9.4, Magnesium 1.5, T roponin T High Sens 15 H D 07/24/24 21:10: Troponin T Hi Sens 2 Hr 17 H 07/24/24 21:45: POC Glucose 192 H 07/24/24 22:43: Troponin T Hi Sens 4Hr 19 H 07/25/24 04:21: WBC 7.3, RBC 3.85 L, Hgb 11.5 L, Hct 33.2 L, MCV 86.2, MCH 29.9, MCHC 34.6, RDW Std Deviation 40.4, RDW Coeff of Gilberto 12.8, Plt Count 219, MPV 9.9, Immature Gran % (Auto) 0.300, Neut % (Auto) 78.0 H, Lymph % (Auto) 14.4 L, Kershaw % (Auto) 5.3, Eos % (Auto) 1.6, Baso % (Auto) 0.4, Absolute Neuts (auto) 5.7, Absolute Lymphs (auto) 1.05, Nucleated RBC % 0, Sodium 133, Potassium 3.4, Chloride 99, Carbon Dioxide 20.0 L, Anion Gap 14, BUN 21 H, Creatinine 1.25 H, E stim Creat Clear Calc 29.61 L, Est GFR (MDRD) Non-Af 42 L, BUN/Creatinine Ratio 16.9, Glucose 214 H, Calcium 9.3, Total Bilirubin 0.43, AST 19, ALT 13, Alkaline Phosphatase 69, Total Protein 5.9, Albumin 3.8, Globulin 2.1 L, Albumin/Globulin Ratio 1.8, Triglycerides 167, Cholesterol 179, LDL Cholesterol, Calc 97, VLDL Cholesterol 33, HDL Cholesterol 49, Cholesterol/HDL Ratio 3.65 Radiography Diagnostic Testing: Radiology Impression Chest X-Ray 07/24/24 18:36 IMPRESSION: Stable linear retrocardiac opacities which may relate to atelectasis/scarring. Please correlate. Reading Location: [facility] Assessment & Plan Assessment/Plan (1) Chest pain: PLAN: Plan The patient is an 84 y/o F was admitted with sternal chest pain, burning in quality with shortness of breath that started about 5 PM on the day of admission. Patient was seen in the ED 4 days ago with similar symptoms but this time it was more intense. History of CABG for more than 30 years ago. #1. Atypical Chest Pain: Patient is being admitted in PCU. Twelve-lead EKG shows sinus rhythm at 74/min, isolated T wave inversion in 3, similar to 4 days ago. First troponin 15, 17 and 19. There is no significant delta rise therefore acute [place] unlikely. Laboratory Results 07/24/24 18:33: WBC 6.5, RBC 3.93 L, Hgb 11.7 L, Hct 34.0 L, MCV 86.5, MCH 29.8, MCHC 34.4, RDW Std Deviation 40.4, RDW Coeff of Gilberto 12.7, Plt Count 244, MPV 9.6, Immature Gran % (Auto) 0.300, Neut % (Auto) 62.1, Lymph % (Auto) 28.3, Kershaw % (Auto) 6.7, Eos % (Auto) 2.3, Baso % (Auto) 0.3, Absolute Neuts (auto) 4.1, Absolute Lymphs (auto) 1.85, Nucleated RBC % 0, D-Dimer Quant (PE/DVT) 0.39, S odium 131 L, Potassium 3.7, Chloride 95 L, Carbon Dioxide 22.8, Anion Gap 14, B UN 23 H, Creatinine 1.53 H, Estim Creat Clear Calc 24.19 L, Est GFR (MDRD) Non- Af 33 L, BUN/Creatinine Ratio 14.8, Glucose 271 H, Calcium 9.4, Magnesium 1.5, T roponin T High Sens 15 H D 07/24/24 21:10: Troponin T Hi Sens 2 Hr 17 H 07/24/24 21:45: POC Glucose 192 H 07/24/24 22:43: Troponin T Hi Sens 4Hr 19 H 07/25/24 04:21: WBC 7.3, RBC 3.85 L, Hgb 11.5 L, Hct 33.2 L, MCV 86.2, MCH 29.9, MCHC 34.6, RDW Std Deviation 40.4, RDW Coeff of Gilberto 12.8, Plt Count 219, MPV 9.9, Immature Gran % (Auto) 0.300, Neut % (Auto) 78.0 H, Lymph % (Auto) 14.4 L, Kershaw % (Auto) 5.3, Eos % (Auto) 1.6, Baso % (Auto) 0.4, Absolute Neuts (auto) 5.7, Absolute Lymphs (auto) 1.05, Nucleated RBC % 0, Sodium 133, Potassium 3.4, Chloride 99, Carbon Dioxide 20.0 L, Anion Gap 14, BUN 21 H, Creatinine 1.25 H, E stim Creat Clear Calc 29.61 L, Est GFR (MDRD) Non-Af 42 L, BUN/Creatinine Ratio 16.9, Glucose 214 H, Calcium 9.3, Total Bilirubin 0.43, AST 19, ALT 13, Alkaline Phosphatase 69, Total Protein 5.9, Albumin 3.8, Globulin 2.1 L, Albumin/Globulin Ratio 1.8, Triglycerides 167, Cholesterol 179, LDL Cholesterol, Calc 97, VLDL Cholesterol 33, HDL Cholesterol 49, Cholesterol/HDL Ratio 3.65 #2. Hyperglycemia with reported prediabetic history: Not on regimen, admission glucose 271, will obtain he will A1c, maintain on ADA diet with Accu-Cheks with insulin sliding scale to be cautious. #3. Acute mild hyponatremia, hypochloremia: Admission sodium 131, chloride 95, mildly decreased, will temporally hold chlorthalidone and judiciously hydrate, repeat CMP in AM. #4. Chronic normocytic anemia: Admission hemoglobin 1.7, MCV 86.5, baseline hemoglobin 11, stable, continue to trend. #5. CAD: Status post CABG x 4 remotely reported, will maintain on aspirin, statin, not on beta-samanta or ISAIAS inhibitor/ARB, attempting to clarify #6. Chronic Kidney Disease Stage III, unclear subtype per GFR trend: Admission BUN/Cr 23/1.53, GFR 33, baseline renal function 1.3 but not a significant amount of data points thus unclear exact level baseline, repeat BMP in AM. #7. History of colon cancer: s/p partial colectomy/resection approximately 2 years prior to current presentation, colostomy in place, consider admission, encourage continue follow-up outpatient as previously arranged #8. Hypertension: Temporally holding chlorthalidone, not on beta-samanta or ISAIAS inhibitor/ARB of note, PRN hydralazine. #9. Hyperlipidemia: Continue home statin regimen. AM FLP. #10. DVT prophylaxis: Lovenox. #11. CODE status: Patient healthcare power of compliance attorney and living will are not in place but she notes that her daughter Jazmyn would be her medical decision- maker if necessary. Discussed CODE status at length including difference between FULL code, DNR-CCA and DNR-CC status. Following discussions about the differences in these status, requested Full Code status. Advanced Care Planning Face to Face Time: 16 minutes.
[2024-07-25 08:58] LABS: Bedside Glucose 205 mg/dL (74-106)
[2024-07-25 11:35] LABS: Bedside Glucose 199 mg/dL (74-106)
[2024-07-25] MEDS: Insulin Lispro 100 UNIT/ML INSULN.PEN SC (11:35)
[2024-07-25] MEDS: Raloxifene HCl 60 MG Tablet PO (11:35)
--- NOTE | 2024-07-25 12:07 | STRESSREP ---
Stress Test Report Pharmacologic myocardial perfusion stress test. 84-year-old male with a history of chest pain Resting EKG demonstrates sinus rhythm with a rate of 97 bpm. Resting blood pressure is 171/70 mmHg. 0.4 mg of regadenoson was infused per usual protocol followed by rapid intravenous saline flush injection. Continuous EKG monitoring was performed. The maximum heart rate was 109 bpm which was 80% of max impacted heart rate the maximum workload was 1 metabolic equivalent. At rest there were no ST or T wave changes noted to suggest ischemia and at peak infusion nonspecific ST changes were noted which did not meet the criteria for ischemia. No clinical angina is noted. The final blood pressure was 163/61 mmHg. Myocardial perfusion protocol. 10.9 mCi of technetium 99m sestamibi was injected at rest. 0.4 mg of regadenoson was infused per usual protocol. At peak infusion 33.7 mCi of technetium 99m sestamibi was injected stress images were obtained stress and rest images were reconstructed and compared in the short axis vertical long and horizontal long axis. Gated images were also obtained. Perfusion SPECT analysis: Review of the stress images demonstrate normal uptake of tracer noted in all areas of the myocardium. The resting images similar demonstrated normal uptake of tracer noted in all areas of the myocardium. No areas of reversibility are noted to suggest ischemia and no previous infarct is noted. Gated SPECT analysis: The gated ejection fraction is 87%. Conclusion: Normal pharmacologic myocardial perfusion stress test. Preserved ejection fraction.
--- NOTE | 2024-07-25 14:18 | DCINST_ITS ---
Discharge Instructions DC O2, CPAP, BIPAP needs Home O2 Discharge instructions: No Follow Up Care Test Results: Test results from this visit will be discussed in further detail at your follow- up appointment, if applicable. Discharge Plan Admission Admit Date/Time: 07/24/24 19:52 Attending Provider: J Carlos Reyes Primary Care Provider: Alexis West Consulting Providers: Jessica Sidhu Discharge Orders/Prescriptions Prescriptions: New aspirin 81 mg Tablet,Delayed Release (Dr/Ec) 81 mg PO BREAKFAST 30 Days Qty: 30 3RF sennosides-docusate sodium [Stimulant Laxative Plus] 8.6-50 mg Tablet 2 tab PO BID PRN PRN (Reason: Constipation) Qty: 0 0RF Rx Instructions: Ynoa-mvb-omjcylh glipizide 5 mg tablet 5 mg PO DAILY 30 Days Qty: 30 0RF Rx Instructions: Hold if glucose less than 130 mg/dl Continued atorvastatin 80 MG tablet 80 mg PO DAILY raloxifene 60 MG tablet 60 mg PO DAILY chlorthalidone 25 mg tablet 25 mg PO DAILY clobetasol 0.05 % solution 1 applic TOPICAL DAILY Patient Comments: APPLY A FEW DROPS TO AFFECTED AREAS OF THE SCALP ONCE OR TWICE DAILY FOR A MAXIMUM OF 2 WEEKS, THEN TAKE A 1 WEEK BREAK BEFORE RESUMING cholecalciferol (vitamin D3) 1 tab PO DAILY Patient Comments: PT UNAWARE OF STRENGTH Referrals / Follow Up: Alexis West MD [Primary Care Provider] - Within 2 Weeks (For control of glucose, diabetes mellitus) Johny Roman MD [Med Staff - Active Staff] - Within 1 Month Disposition Disposition (needs filled in before D/C Order can be placed): Home, Self Care
--- NOTE | 2024-07-25 14:31 | DS.PCM_ITS ---
Providers Date of Admission: 07/24/24 Date of Discharge: 07/25/24 Primary Care Physician: Dr. Alexis West MD Reason For Visit: CHEST PAIN Diagnosis Discharge Diagnosis (1) Chest pain: Status: Acute Code(s): R07.9 - Chest pain, unspecified Plan The patient is an 84 y/o F was admitted with sternal chest pain, burning in quality with shortness of breath that started about 5 PM on the day of admission. Patient was seen in the ED 4 days ago with similar symptoms but this time it was more intense. History of CABG for more than 30 years ago. #1. Atypical Chest Pain: Patient is being admitted in PCU. Twelve-lead EKG shows sinus rhythm at 74/min, isolated T wave inversion in 3, similar to 4 days ago. First troponin 15, 17 and 19. There is no significant delta rise therefore acute WI unlikely. Patient had pharmacological nuclear stress test was negative and reported normal. Preserved EF 87% #2. Diabetes mellitus type 2: Patient has history of prediabetes but now has progressed to diabetes mellitus. Her glucose has been more than 200 on random occasion therefore she meets the definition of diabetes mellitus, 271 and 214. Advised follow with PCP for better control of glucose and A1c. Prescription for glipizide 5 mg daily and glucometer ordered. Metformin continued because of GFR less than 30 mL/min. It looks patient has not been following with PCP for long time. #3. Acute mild hyponatremia, hypochloremia: Admission sodium 131, chloride 95, mildly decreased. Repeat serum sodium is 133 due to chlorthalidone. Need repeat electrolyte/BMP by PCP 2 weeks. K3.4 #4. Chronic normocytic anemia: Admission hemoglobin 11.7, MCV 86.5, baseline hemoglobin 11, stable, continue to trend. Hemoglobin is stable. #5. CAD: Status post CABG x 4 remotely reported, continue on statin. She does not have major contraindication for baby aspirin and has history of CABG therefore baby aspirin prescribed. 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 Follow-up with [facility] in 1 month #6. Chronic Kidney Disease Stage 4: Admission BUN/Cr 23/1.53, GFR 33, baseline renal function about 1 1.25-1.35. Admitted with 1.53 improved to 1.25. Does not meet criteria for MILLI. CKD stage IV #7. History of colon cancer: s/p partial colectomy/resection approximately 2 years prior to current presentation, colostomy in place, consider admission, encourage continue follow-up outpatient as previously arranged #8. Hypertension: Continue chlorthalidone and follow with PCP with BMP in 2 weeks. Might need potassium supplement #9. Hyperlipidemia: Continue home statin regimen. Lipid profile in normal limit. #10. DVT prophylaxis: Lovenox. #11. CODE status: Patient healthcare power of commercial real estate attorney and living will are not in place but she notes that her daughter Jazmyn would be her medical decision- maker if necessary. Discussed CODE status at length including difference between FULL code, DNR-CCA and DNR-CC status. Following discussions about the differences in these status, requested Full Code status. Medications at Discharge Home Medications atorvastatin 80 mg tablet 80 mg PO DAILY 03/08/16 raloxifene 60 mg tablet 60 mg PO DAILY 03/08/16 chlorthalidone 25 mg tablet 25 mg PO DAILY 07/24/24 cholecalciferol (vitamin D3) 1 tab PO DAILY 07/24/24 clobetasol 0.05 % scalp solution 1 applic topical DAILY 07/24/24 aspirin 81 mg tablet,delayed release 81 mg PO BREAKFAST 30 days #30 tabs 07/25/24 glipizide 5 mg tablet 5 mg PO DAILY 1 month #30 tabs 07/25/24 sennosides 8.6 mg-docusate sodium 50 mg tablet (Stimulant Laxative Plus) 2 tab PO BID PRN PRN Constipation #0 tabs 07/25/24 Physical Exam Narrative Seen and examined. Patient was seen prior to stress test and after the stress test and the result communicated to the patient and her daughter She complained of chest pain intermittently on walking, localized without radiation, associated with mild shortness of Possible chronic stable angina Physical exam General: Alert, Oriented x3, Cooperative. BMI 22.0 kg/m? HEENT: Atraumatic, PERRLA, EOMI, Normocephalic Oral: No Gingival or Mucosal Lesions/ Ulcerations Neck: Supple, No JVD, Negative Carotid Bruits Chest wall/Lungs: Air entry diminished in bilateral lung bases. No crepitation/rhonchi Cardiovascular: Regular rate, Regular Rhythm, Normal S1, Normal S2, soft systolic murmur Abdomen: Bowel Sounds Present, Soft, Non Tender, Non-Distended : No dysuria. No renal angle tenderness. No suprapubic tenderness. Extremities: No edema, Capillary Refill Less than 3 Seconds Skin: No rashes, No breakdown Musculoskeletal: No Tenderness to Palpation of Joints or Extremities Neurological: Cranial nerves II-XII grossly intact, DTR 2+/4. No acute focal neurological deficit. Psych/Mental Status: Flat affect. MCI Weight / BMI Weight Weight: 132 lb 4.438 oz Body Mass Index (BMI) 22.0 ABG / Lab / Microbiology Data 07/25/24 04:21 07/25/24 04:21 Laboratory: Laboratory Results - last 24 hr 07/24/24 18:33: WBC 6.5, RBC 3.93 L, Hgb 11.7 L, Hct 34.0 L, MCV 86.5, MCH 29.8, MCHC 34.4, RDW Std Deviation 40.4, RDW Coeff of Gilberto 12.7, Plt Count 244, MPV 9.6, Immature Gran % (Auto) 0.300, Neut % (Auto) 62.1, Lymph % (Auto) 28.3, [place] % (Auto) 6.7, Eos % (Auto) 2.3, Baso % (Auto) 0.3, Absolute Neuts (auto) 4.1, Absolute Lymphs (auto) 1.85, Nucleated RBC % 0, D-Dimer Quant (PE/DVT) 0.39, S odium 131 L, Potassium 3.7, Chloride 95 L, Carbon Dioxide 22.8, Anion Gap 14, B UN 23 H, Creatinine 1.53 H, Estim Creat Clear Calc 24.19 L, Est GFR (MDRD) Non- Af 33 L, BUN/Creatinine Ratio 14.8, Glucose 271 H, Calcium 9.4, Magnesium 1.5, T roponin T High Sens 15 H D 07/24/24 21:10: Troponin T Hi Sens 2 Hr 17 H 07/24/24 21:45: POC Glucose 192 H 07/24/24 22:43: Troponin T Hi Sens 4Hr 19 H 07/25/24 04:21: WBC 7.3, RBC 3.85 L, Hgb 11.5 L, Hct 33.2 L, MCV 86.2, MCH 29.9, MCHC 34.6, RDW Std Deviation 40.4, RDW Coeff of Gilberto 12.8, Plt Count 219, MPV 9.9, Immature Gran % (Auto) 0.300, Neut % (Auto) 78.0 H, Lymph % (Auto) 14.4 L, [place] % (Auto) 5.3, Eos % (Auto) 1.6, Baso % (Auto) 0.4, Absolute Neuts (auto) 5.7, Absolute Lymphs (auto) 1.05, Nucleated RBC % 0, Sodium 133, Potassium 3.4, Chloride 99, Carbon Dioxide 20.0 L, Anion Gap 14, BUN 21 H, Creatinine 1.25 H, E stim Creat Clear Calc 29.61 L, Est GFR (MDRD) Non-Af 42 L, BUN/Creatinine Ratio 16.9, Glucose 214 H, Calcium 9.3, Total Bilirubin 0.43, AST 19, ALT 13, Alkaline Phosphatase 69, Total Protein 5.9, Albumin 3.8, Globulin 2.1 L, Albumin/Globulin Ratio 1.8, Triglycerides 167, Cholesterol 179, LDL Cholesterol, Calc 97, VLDL Cholesterol 33, HDL Cholesterol 49, Cholesterol/HDL Ratio 3.65 07/25/24 06:18: POC Glucose 205 H 07/25/24 11:17: POC Glucose 199 H Radiography Diagnostic Testing: Radiology Impression Chest X-Ray 07/24/24 18:36 IMPRESSION: Stable linear retrocardiac opacities which may relate to atelectasis/scarring. Please correlate. Reading Location: [facility] Instructions DC O2, CPAP, BIPAP Needs Home O2 Discharge instructions: No Meaningful Use Info Meaningful Use Meaningful Use Diagnoses (Choose all that apply): None applicable Ischemic Stroke Statin Dosing Therapy Reference: STATIN DOSE THERAPY REFERENCE: * Patients > 75 years receive moderate or high dose statin therapy. * Patients 75 years or YOUNGER should receive HIGH intensity statin dose unless contraindicated. You will be required to document reason for non-treatment if statin daily dose does not meet guidelines. HIGH DOSE STATIN THERAPY DAILY Atorvastatin > than or = to 40 mg Rosuvastatin > than or = to 20 mg Amlodipine + Atorvastatin > than or = to 2.5/40 mg Ezetimibe + Simvastatin 10/80 mg Simvastatin 80mg Discharge Plan Admission Admit Date/Time: 07/24/24 19:52 Attending Provider: J Carlos Reyes Primary Care Provider: Alexis West Consulting Providers: Jessica Sidhu Discharge Orders/Prescriptions Prescriptions: New aspirin 81 mg Tablet,Delayed Release (Dr/Ec) 81 mg PO BREAKFAST 30 Days Qty: 30 3RF sennosides-docusate sodium [Stimulant Laxative Plus] 8.6-50 mg Tablet 2 tab PO BID PRN PRN (Reason: Constipation) Qty: 0 0RF Rx Instructions: [id number] glipizide 5 mg tablet 5 mg PO DAILY 30 Days Qty: 30 0RF Rx Instructions: Hold if glucose less than 130 mg/dl Continued atorvastatin 80 MG tablet 80 mg PO DAILY raloxifene 60 MG tablet 60 mg PO DAILY chlorthalidone 25 mg tablet 25 mg PO DAILY clobetasol 0.05 % solution 1 applic TOPICAL DAILY Patient Comments: APPLY A FEW DROPS TO AFFECTED AREAS OF THE SCALP ONCE OR TWICE DAILY FOR A MAXIMUM OF 2 WEEKS, THEN TAKE A 1 WEEK BREAK BEFORE RESUMING cholecalciferol (vitamin D3) 1 tab PO DAILY Patient Comments: PT UNAWARE OF STRENGTH Referrals / Follow Up: Alexis West MD [Primary Care Provider] - Within 2 Weeks (For control of glucose, diabetes mellitus) Johny Roman MD [Med Staff - Active Staff] - Within 1 Month Disposition Disposition (needs filled in before D/C Order can be placed): Home, Self Care Charges/Coding Visit Charges Inpatient E&M: 41692 Disch Hosp >30min
--- NOTE | 2024-07-25 15:17 | CASEMGMT ---
Met with patient to complete [employer] form. [employer] form explained to patient who voiced understanding and signed form. Original form placed in pt?s chart and copy provided to patient. Kylie Marie, Discharge Planning Asst
--- NOTE | 2024-07-25 15:25 | CASEMGMT ---
Patient has order for discharge. Script received for glucometer and placed in discharge packet. RN CM in to discuss needs at discharge. Patient denies needs or help at discharge. Patient had no further questions or concerns.
== END 2024-07-25 15:03 | disposition home or self-care (01) ==
LOC: ED 19:36 → PCU 20:10
PROVIDERS: Admitting Provider Family Medicine; Emergency Provider Emergency Medicine; PCP Family Medicine; Referring Provider Emergency Medicine; Visit Provider Internal Medicine
DX: R07.9 Chest pain, unspecified (principal); Z93.3 Colostomy status; N18.4 Chronic kidney disease, stage 4 (severe); E11.22 Type 2 diabetes mellitus with diabetic chronic kidney disease; E11.65 Type 2 diabetes mellitus with hyperglycemia; E87.1 Hypo-osmolality and hyponatremia; E87.8 Other disorders of electrolyte and fluid balance, not elsewhere classified; I12.9 Hypertensive chronic kidney disease with stage 1 through stage 4 chronic kidney disease, or unspecified chronic kidney disease; I25.10 Atherosclerotic heart disease of native coronary artery without angina pectoris; R06.02 Shortness of breath; E78.00 Pure hypercholesterolemia, unspecified; Z79.810 Long term (current) use of selective estrogen receptor modulators (SERMs); Z79.82 Long term (current) use of aspirin; Z79.84 Long term (current) use of oral hypoglycemic drugs; Z79.899 Other long term (current) drug therapy; Z95.1 Presence of aortocoronary bypass graft; Z85.038 Personal history of other malignant neoplasm of large intestine
CPT/HCPCS: 36415; 71045; 78452; 80048; 80053; 80061; 82962; 83735; 84484; 85025; 85379; 93005; 93017; 94668; 96361; 96374; 96376; 99221; 99285; A9500; A4216; G0378; J2785